=== PATIENT | male | born 2000 | race Caucasian/White ===

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

== ENCOUNTER 2021-01-11 22:01 | Emergency (ER) | payer MEDICAID ==
[~2021-01-11 22:01] MED LIST: AMOX-358 PO
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
[2021-01-11 23:00] VITALS: BP 110/77
== END 2021-01-11 23:00 | disposition home or self-care (01) ==
LOC: EDUNIT# 22:01 → ER 22:10
DX: T23.142A Burn of first degree of multiple left fingers (nail), including thumb, initial encounter (principal); X10.2XXA Contact with fats and cooking oils, initial encounter
CPT/HCPCS: 99281

== ENCOUNTER 2021-05-08 19:35 | Emergency (ER) | payer MEDICAID ==
[~2021-05-08] VITALS: Ht 165 cm; Wt 60.0 kg
[2021-05-08 19:42] VITALS: BP 106/64
--- NOTE | 2021-05-08 19:52 | ED Lower Extremity ---
General Chief Complaint: Lower Extremity Stated Complaint: L HIP PAIN Source: patient Exam Limitations: no limitations (SARAI CARDENAS APRN) History of Present Illness Date Seen by Provider: May 08, 2021 Time Seen by Provider: 19:50 Initial Comments To ER with left groin pain. He took a charge during a basketball game with friends last night and has significant pain of the left inguinal region now. No pain in the testicles no abdominal pain. Onset: just prior to arrival Severity: moderate Pain/Injury Location: left hip Method of Injury: direct blow, sports injury Modifying Factors: Worse With Movement (SARAI CARDENAS APRN) Allergies and Home Medications Allergies Coded Allergies: No Known Drug Allergies (Unverified , 09/20/20) Patient Home Medication List Home Medication List Reviewed: Yes (SARAI CARDENAS APRN) Amoxicillin/Potassium Clav (Augmentin 875-125 Tablet) 1 Each Tablet, 1 EACH PO BID Prescribed by: SHANTELLE CROWLEY on 09/21/20 0134 Review of Systems Constitutional: see HPI EENTM: see HPI Respiratory: no symptoms reported Cardiovascular: no symptoms reported Genitourinary: no symptoms reported Musculoskeletal: see HPI Skin: no symptoms reported Psychiatric/Neurological: No Symptoms Reported (SARAI CARDENAS APRN) Past Yemrxdp-Rnjfyq-Jhqwjj Hx Immunizations Up To Date Tetanus Booster (TDap): Unknown (SARAI CARDENAS APRN) Past Medical History Surgeries: No Respiratory: No Cardiac: No Neurological: Yes ("FOCAL SEIZURES"--JUST A SINGLE "TIC" OF UPPER OR LOWER BODY--NO MEDICATION) Seizure Disorder Genitourinary: No Gastrointestinal: No Musculoskeletal: No Endocrine: No HEENT: No Cancer: No Psychosocial: No Integumentary: No Blood Disorders: No (SARAI CARDENAS APRN) Physical Exam Vital Signs Vital Signs - First Documented 05/08/21 19:42 Temp 36.8 Pulse 73 Resp 16 B/P (MAP) 106/64 (78) Pulse Ox 99 O2 Delivery Room Air (MERCED PIERRE MD) Vital Signs Capillary Refill : (SARAI CARDENAS APRN) Height, Weight, BMI Height: '" Weight: lbs. oz. kg; 20.00 BMI Method: General Appearance: WD/WN, no apparent distress HEENT: PERRL/EOMI, normal ENT inspection Respiratory: no respiratory distress, no accessory muscle use Hips: bilateral hip non-tender, bilateral hip normal inspection, bilateral hip normal range of motion Legs: right leg non-tender, right leg normal inspection, right leg normal range of motion; left leg other (Tender to palpation over the anteromedial aspect of the left groin) Knees: bilateral knee non-tender, bilateral knee normal inspection, bilateral knee normal range of motion Ankles: bilateral ankle non-tender, bilateral ankle normal inspection, bilateral ankle normal range of motion Feet: bilateral foot non-tender, bilateral foot normal inspection, bilateral foot normal range of motion Neurologic/Psychiatric: alert, normal mood/affect, oriented x 3 Skin: normal color, warm/dry (SARAI CARDENAS APRN) Progress/Results/Core Measures Results/Orders Medications Given in ED Current Medications Medications Dose Ordered Sig/Neal Route Start Time Stop Time Status Last Admin Dose Admin Acetaminophen/ Hydrocodone Bitart 1 ea Q6H PRN PO 05/08/21 20:00 05/08/21 20:26 DC 05/08/21 20:14 1 EA (MERCED PIERRE MD) Vital Signs/I&O 05/08/21 05/08/21 19:42 20:24 Temp 36.8 Pulse 73 76 Resp 16 16 B/P (MAP) 106/64 (78) Pulse Ox 99 100 O2 Delivery Room Air Room Air (MERCED PIERRE MD) Departure Communication (Admissions) Pain is significantly worsened with adduction of the left hip (SARAI CARDENAS APRN) Impression Primary Impression: Strain of left hip adductor muscle Disposition: HOME, SELF-CARE Condition: Stable Departure-Patient Inst. Decision time for Depature: 19:55 (SARAI CARDENAS APRN) Referrals: NO,LOCAL PHYSICIAN (PCP) Primary Care Physician Add. Discharge Instructions: 1. Ice pack to the area 30 minutes every 2-3 hours. Use the crutches as directed. Whenever you are able to walk without limp or severe pain you can stop using the crutches. Use ibuprofen--3 tablets every 6 hours for pain. All discharge instructions reviewed with patient and/or family. Voiced unde rstanding. Work/School Note: Work Release Form Date Seen in the Emergency Department: May 08, 2021 Return to Work: May 11, 2021 ATTENDING PHYSICIAN NOTE: I was physically present as attending physician in the emergency department during the care of this patient, but I was not directly involved in the decision making or delivery of care for this patient. (MERCED PIERRE MD) Images Female/Male 1 - Tenderness (SARAI CARDENAS APRN) SARAI CARDENAS APRN May 08, 2021 19:52 MERCED PIERRE MD May 09, 2021 04:55
== END 2021-05-08 20:24 | disposition home or self-care (01) ==
LOC: EDUNIT# 19:35 → ER 19:36
DX: S76.012A Strain of muscle, fascia and tendon of left hip, initial encounter (principal); Y93.67 Activity, basketball
CPT/HCPCS: 99283

== ENCOUNTER 2021-05-30 14:31 | Emergency (ER) | payer MEDICAID ==
[~2021-05-30] VITALS: Ht 168 cm; Wt 60.0 kg
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
[2021-05-30] MEDS ORDERED: ACETAMINOPHEN 325 MG TABLET PO ONE (15:30)
--- NOTE | 2021-05-30 15:46 | Diagnostic Imaging Report ---
PROCEDURE: CT head without contrast. TECHNIQUE: Multiple contiguous axial images were obtained through the brain without the use of intravenous contrast. Auto Exposure Controls were utilized during the CT exam to meet ALARA standards for radiation dose reduction. INDICATION: Left-sided headache. COMPARISON: CT head without contrast from 09/20/2020. FINDINGS: No intracranial hemorrhage, mass effect, hydrocephalus or extra-axial fluid collections. No CT evidence of a territorial infarction. Osseous structures are intact. Visualized paranasal sinuses and mastoids are clear. IMPRESSION: Negative head CT. Dictated by: Dictated on workstation # [id number]
[2021-05-30 15:56] VITALS: BP 104/68
== END 2021-05-30 15:57 | disposition home or self-care (01) ==
LOC: EDUNIT# 14:31 → ER 14:33
DX: S00.03XA Contusion of scalp, initial encounter (principal); W50.0XXA Accidental hit or strike by another person, initial encounter; Y93.67 Activity, basketball
CPT/HCPCS: 70450

== ENCOUNTER 2021-06-01 06:21 | Emergency (ER) | payer MEDICAID ==
[~2021-06-01] VITALS: Ht 168 cm; Wt 60.0 kg
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
[2021-06-01] MEDS ORDERED: ONDANSETRON 4 MG (ZOFRAN) ORAL DISSOLVE TAB SL ONE (07:45)
[2021-06-01] MEDS ORDERED: ONDA4TAB11 SL (07:53)
[2021-06-01] MEDS ORDERED: IBUPROFEN TABLET 200 MG TAB PO ONE (08:00)
[2021-06-01 08:22] VITALS: BP 103/63
== END 2021-06-01 08:22 | disposition home or self-care (01) ==
LOC: EDUNIT# 06:21 → ER 06:25
DX: S06.0X9A Concussion with loss of consciousness of unspecified duration, initial encounter (principal); W22.8XXA Striking against or struck by other objects, initial encounter
CPT/HCPCS: 99283

== ENCOUNTER 2021-11-10 23:26 | Emergency (ER) | payer MEDICAID ==
[~2021-11-10] VITALS: Ht 170.1 cm; Wt 62.3 kg
[~2021-11-10 23:26] MED LIST changes: +ONDA4TAB11 SL
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
[2021-11-11 00:09] VITALS: BP 116/70
== END 2021-11-11 00:02 | disposition home or self-care (01) ==
LOC: EDUNIT# 23:26 → ER 23:29
DX: T23.261A Burn of second degree of back of right hand, initial encounter (principal); Z28.310 Unvaccinated for COVID-19; X10.2XXA Contact with fats and cooking oils, initial encounter; Y92.59 Other trade areas as the place of occurrence of the external cause; Y99.0 Civilian activity done for income or pay
CPT/HCPCS: 99281